=== PATIENT | female | born 1980 | race Two or more races ===

== ENCOUNTER 2017-01-20 16:47 | Emergency (ER) | payer SELFPAY ==
[~2017-01-20] VITALS: Ht 157.5 cm; Wt 59.0 kg
[2017-01-20 16:47] VITALS: BP 138/90
[2017-01-20] MEDS ORDERED: Thiamine HCl 100 MG, Folic Acid 1 MG, Magnesium Sulfate 2,000 MG, Multivitamin - 12 Inj... IV ONE ×5 (17:00)
--- NOTE | 2017-01-20 17:16 | Emergency Room Report ---
History of Present Illness General Chief Complaint: Alcohol Intoxication Source: Patient, EMS Present Illness HPI 36 yo F with hx of alcohol abuse p/w alc intoxication. pt states she lives at home with boyfriend, drank a lot of alcohol today, unclear how much, and said she may have called 911. currntly aox3 but smells of alcohol, denies any headache, cp, sob, abd pain, nvd. states she has been drinking most days for "a long time". denies other drug use. denies SI/HI Allergies: Coded Allergies: ACETAMINOPHEN (Verified Allergy, Unknown, Itching, 01/20/17) HYDROCODONE (Verified Allergy, Unknown, Itching, 01/20/17) Patient History Past Medical History: none Past Surgical History: none Pertinent Family History: none Social History: Reports: alcohol use Last Menstrual Period: 12/20/16 Nursing Documentation-[facility] Past Medical History: No History, Except For History Of Psychiatric Problem: Yes - Anxiety Review of Systems All Other Systems: negative except mentioned in HPI Physical Exam Vital Signs Date Time Temp Pulse Resp B/P Pulse Ox O2 Delivery O2 Flow Rate FiO2 01/20/17 16:40 97.9 119 18 138/90 100 Room Air General Appearance: normal inspection, no apparent distress, alert, GCS 15, other - disheveled intoxicated young female, appears tearful, intox but is cooperative Head: normocephalic, atraumatic Eyes: bilateral eye EOMI, bilateral eye PERRL, bilateral eye normal inspection ENT: normal ENT inspection, normal pharynx, normal voice, moist mucus membranes Neck: normal inspection, full range of motion, supple, no bony tend Respiratory: normal inspection, lungs clear, normal breath sounds, no respiratory distress, no retraction, no wheezing, speaking full sentences, chest symmetrical Cardiovascular #1: normal inspection, regular rate, rhythm, no edema, normal capillary refill Gastrointestinal: normal inspection, non tender, soft, non-distended, no guarding Musculoskeletal: normal inspection, back normal, normal range of motion, non- tender Neurologic: normal inspection, alert, oriented x3, responsive, motor strength/ tone normal, sensory intact, speech normal Medical Decision Making Diagnostic Impression: Primary Impression: Acute alcoholic intoxication ER Course 36 yo F with alcohol intoxication Plan: obtain labs including alcohol level IVF DC when clinically sober ER course: labs: alc 429 Remains stable in the ED Patient became clinically sober, ambulatory in the ED Disposition: Discharged to home. Pt aox3 and is now sober. Last Vital Signs Date Time Temp Pulse Resp B/P Pulse Ox O2 Delivery O2 Flow Rate FiO2 01/20/17 16:47 97.9 109 18 138/90 100 Room Air Disposition: HOME, SELF-CARE Condition: Improved Franko Argueta M.D. Jan 20, 2017 17:16
[2017-01-20 17:24] LABS: MEAN CORPUSCULAR HEMOGLOBIN 34.5 PG (27.0-31.0); MEAN CORPUSCULAR HGB CONC 33.3 G/DL (32.0-36.0); MEAN CORPUSCULAR VOLUME 104 FL (80-99); MEAN PLATELET VOLUME 11.1 FL (6.5-10.1); PLATELET COUNT 53 K/UL (150-450); RED BLOOD COUNT 3.48 M/UL (4.20-5.40); RED CELL DISTRIBUTION WIDTH 13.1 % (11.6-14.8); WHITE BLOOD COUNT 6.8 K/UL (4.8-10.8)
[2017-01-20] MEDS ORDERED: Folic Acid 1 MG, Magnesium Sulfate 2,000 MG, Multivitamin - 12 Injection 10 ML in NS w/... IV SCH (17:30)
[2017-01-20 17:33] LABS: ALANINE AMINOTRANSFERASE 41 U/L (3-33); ALCOHOL 429 mg/dL; ANION GAP 23 (5-15); ASPARTATE AMINO TRANSFERASE 191 U/L (5-40); CALCIUM 8.7 mg/dL (8.6-10.2); CARBON DIOXIDE 20 mEQ/L (20-30); CHLORIDE 102 mEQ/L (98-107); CREATININE 0.5 mg/dL (0.5-0.9); GLOMERULAR FILTRATION RATE > 60 mL/min (>60); HEMOLYSIS 59; POTASSIUM 3.1 mEQ/L (3.4-4.9); SODIUM 145 mEQ/L (135-145); TOTAL PROTEIN 7.9 g/dL (6.6-8.7)
[2017-01-20] MEDS ORDERED: Thiamine HCl 100mg/ml 2 ml Inj ONE (17:38)
[2017-01-20 17:48] LABS: BILIRUBIN,DIRECT 0.7 mg/dL (0.1-0.3)
[2017-01-20] MEDS ORDERED: Thiamine 100mg IVPB (Q24H) IVPB SCH ×2 (18:15)
[2017-01-20 18:38] LABS: BAND NEUTROPHILS % (MANUAL) 0 % (0-8); BASOPHILS % (MANUAL) 1 % (0-2); EOSINOPHILS % (MANUAL) 2 % (0-3); LYMPHOCYTES % (MANUAL) 27 % (20-45); NEUTROPHILS % (MANUAL) 65 % (45-75); PLATELET ESTIMATE DECREASED; PLATELET MORPHOLOGY NORMAL; TOTAL CELLS COUNTED 100
[2017-01-20 18:40] LABS: ANISOCYTOSIS 1+; MACROCYTES 1+
[2017-01-20 20:39] VITALS: BP 133/78
[2017-01-20 20:40] VITALS: BP 138/90
== END 2017-01-20 20:41 | disposition home or self-care (01) ==
LOC: EDBD 16:47 → EMR 17:18
DX: F10.129 Alcohol abuse with intoxication, unspecified (principal); Z88.6 Allergy status to analgesic agent
CPT/HCPCS: 36415; 80053; 82248; 82962; 85007; 85025; 96360; 96374; 99284; G0480; J3475; J3490; 80329